=== PATIENT | female | born 1945 | race Caucasian/White ===

== ENCOUNTER → 2016-09-25 | Outpatient (CLI) | payer MEDICARE, BC ==
--- NOTE | 2016-09-25 11:58 | KCIC ---
Two-view chest. Indication:Reason For StudyReason: PERSISTENT COUGH 3 WEEKS, BRONCHITIS, BORDERLINE LOW O2 SATURATION, FORMER / Spl. Instructions: / History: FINDINGS: Heart size is normal. Pulmonary vasculature is within normal limits. No pleural effusion or consolidating infiltrate. No pneumothorax. The mediastinal contours are within normal limits. There are postsurgical changes in the mediastinum. IMPRESSION: Negative for evidence of heart failure or pneumonia. Electronically signed by: Laz Camacho (Sep 25, 2016 11:57:06)
== END | disposition home or self-care (01) ==
LOC: KCIC 11:39
PROVIDERS: ATTEND Nurse Practitioner Family
DX: J40 Bronchitis, not specified as acute or chronic (principal); R79.81 Abnormal blood-gas level
CPT/HCPCS: 71020

== ENCOUNTER → 2016-11-29 | Outpatient (CLI) | payer MEDICARE, BC ==
--- NOTE | 2016-11-30 09:23 | KCIC ---
Bilateral digital screening mammograms with CAD: HISTORY Routine screening. COMPARISON Comparison is made to previous studies dated back to 11/26/2013. FINDINGS Breast density category A. The skin and nipples show no abnormalities. No abnormal lymph nodes are seen in the axilla. The breast parenchyma is predominately fatty. There are small intramammary lymph nodes again seen. There continues to be a small parenchymal density anterior superiorly at the 10 o'clock a position of the right breast which is unchanged. There are no new dominant masses, suspicious calcifications or architectural distortions. A few benign appearing calcifications are again seen. IMPRESSION No evidence of malignancy. Recommend routine annual mammographic screening. This study was interpreted with the benefit of Computerized Aided Detection (CAD). Mammography is not 100% sensitive in detecting breast cancer. Therefore, a self breast exam and a clinical breast exam are very important. A negative mammogram does not negate a clinically suspicious finding and should not result in a delay in biopsying a clinically suspicious abnormality. BI-RADS category 2: Benign. This patient's information has been entered into a reminder system for the patient to be notified with the results of this examination and a target date for her next mammograms. Electronically signed by: Jamia Graham MD (Nov 30, 2016 09:21:58)
== END | disposition home or self-care (01) ==
LOC: KCIC MAMMO 11:21
PROVIDERS: ATTEND Family Medicine
DX: Z12.31 Encounter for screening mammogram for malignant neoplasm of breast (principal)
CPT/HCPCS: G0202; 77067

== ENCOUNTER → 2017-04-30 | Outpatient (CLI) | payer MEDICARE, BC ==
--- NOTE | 2017-04-30 12:28 | KCIC ---
CHEST PA LATERAL History: Bronchitis. Shortness of breath for one month.. Comparison: September 25, 2016. Findings: Cardiomediastinal silhouette is unchanged and not grossly enlarged. There is some ill-defined opacity in the right lower lobe, posteriorly, not identified on the prior study. This is fairly well-defined on the lateral projection. No pneumothorax identified. No evidence of pleural effusion. Postsurgical changes are noted. Impression: Development of an ill-defined opacity in the right lower lobe. This may represent pneumonia. Pulmonary mass is also possible. Recommend short-term follow-up radiographs after treatment to document resolution. Depending on risk factors, CT chest could also be considered. Electronically signed by: Rickey Lombardi MD (04/30/2017 12:24 PM) [facility]
== END | disposition home or self-care (01) ==
LOC: KCIC 09:59
PROVIDERS: ATTEND Internal Medicine Pulmonary Disease
DX: J40 Bronchitis, not specified as acute or chronic (principal); R06.02 Shortness of breath; R91.8 Other nonspecific abnormal finding of lung field
CPT/HCPCS: 71020

== ENCOUNTER → 2017-06-01 | Outpatient (CLI) | payer MEDICARE, BC ==
[~2017-06-01] MED LIST: ASPI325T8 PO; CALC1TAB PO; EZET10TA18 PO; FURO40TA4 PO; GLIM4TAB2 PO; IBAN150T PO; METF500T4 PO; METO25TA4 PO; POTA20TA82 PO; SIMV40TA3 PO
--- NOTE | 2017-06-01 16:08 | KCIC ---
PQRS Compliance Statement: One or more of the following individualized dose reduction techniques were utilized for this examination: 1. Automated exposure control 2. Adjustment of the mA and/or kV according to patient size 3. Use of iterative reconstruction technique CT CHEST WO CONTRAST Clinical Indication: Cough, bronchitis. Opacity right lower lobe on previous chest radiograph. Past smoker of 45 years. Comparison: Two-view chest April 30, 2017. Technique: Helical CT imaging of the chest is performed without IV contrast. Findings: Thyroid is symmetric. No axillary adenopathy. There are median sternotomy wires. Aortic valve replacement. There is dense mitral annular calcification. Thoracic aorta is normal in caliber. Pulmonary trunk is dilated. Mildly enlarged mediastinal lymph nodes. There may be enlarged right hilar lymph nodes, limited evaluation without IV contrast. Coronary artery disease. Cardiac size normal, no pericardial effusion. Nodularity of the the right adrenal gland. May be an adenoma. Small right pleural effusion. The central airways are patent. Respiratory motion artifact mildly degrades image quality. Minimal atelectasis or scarring in the inferior lingula. There is a 5 mm nodular opacity in the superior segment of the left lower lobe with surrounding tiny satellite nodules, image 24. There is narrowing of the right upper lobe bronchus, image 24. There is probably a right hilar mass as seen on image 33. There is narrowing of right middle lobe bronchi and peribronchial thickening. There is narrowing and opacification of right lower lobe bronchi. There is consolidation of a large portion of the basilar right lower lobe. There are reticular nodular opacities in the superior segment of the right lower lobe and groundglass opacities in the aerated basilar right lower lobe. There are several subcentimeter pulmonary nodules in the right upper lobe, metastatic disease not excluded. No acute bone abnormality. IMPRESSION: Findings are suspicious for a right hilar lung mass. There is narrowing of central right lung bronchi. There is moderate right lower lobe bronchopneumonia, likely postobstructive. There is small right pleural effusion and mild mediastinal adenopathy. Lung malignancy cannot be excluded. CT chest with contrast may help clarify findings. Electronically signed by: Neel Jimenez MD (06/01/2017 4:04 PM) [id number]
== END ==
LOC: KCIC CT 15:11
PROVIDERS: ATTEND Internal Medicine Pulmonary Disease
DX: J40 Bronchitis, not specified as acute or chronic (principal)
CPT/HCPCS: 71250

== ENCOUNTER → 2017-06-07 | Day surgery (SDC) | payer MEDICARE, BC ==
[~2017-06-07] MED LIST changes: +ALBUTEROL SULFATE 2.5 MG/3 ML NEBU. NEB ONE; +IPRATRPIUM/ALBUTEROL 0.5/2.5MG 3 ML NEBU. NEB ONE; +IV RINGERS,LACTATED 1000ML 1,000 ML IV SCH; +PROPOFOL 20 ML IV ONE
[2017-06-07 13:45] LABS: BASO # 0.1 x10^3/uL (0.0-0.2); BASO % 1 % (0-3); EOS % 3 % (0-3); HEMATOCRIT 43.5 % (36.0-47.0); HEMOGLOBIN 14.5 g/dL (12.0-15.5); LYMPH # 2.1 x10^3/uL (1.0-4.8); LYMPH % 23 % (24-48); MEAN CORPUSCULAR HEMOGLOBIN 31 pg (25-35); MEAN CORPUSCULAR HGB CONC 33 g/dL (31-37); MEAN CORPUSCULAR VOLUME 94 fL (79-100); MONO % 8 % (0-9); NEUT % 65 % (31-73); PLATELET COUNT 251 x10^3/uL (140-400); RED BLOOD COUNT 4.61 x10^6/uL (3.50-5.40); RED CELL DISTRIBUTION WIDTH 14.7 % (11.5-14.5); WHITE BLOOD COUNT 9.1 x10^3/uL (4.0-11.0)
[2017-06-07 13:56] LABS: PROTHROMBIN TIME PATIENT 12.6 SEC (11.7-14.0)
--- NOTE | 2017-06-07 15:13 | OP ---
DATE OF SURGERY: ATTENDING PHYSICIAN: Dr. Hart REASON FOR BRONCHOSCOPY: Abnormal CT chest, right hilar mass, possible postobstructive pneumonia. Informed consent was obtained from the patient. All risks and benefits were explained. They agreed to proceed with the procedure. Propofol was used by Anesthesia for sedation. Bronch was introduced in the right nostril. The upper airway was passed. Vocal cords move equally with respiration. There was a cyst in the right vocal cord. The trachea was entered. No tracheal lesions seen. Qiana was sharp. Right lung was examined. All subsegments of right upper lobe and right lower lobe were examined. There was some extrinsic compression of the right middle lobe opening. I was unable to pass the scope into the right middle lobe due to the extrinsic compression. There were no definite endobronchial lesions seen. I performed 2 cytology brushes from the mucosa of the opening of the right middle lobe and also bronchoalveolar lavage was performed from this area as well. Left lung was examined, no endobronchial lesions seen in all the subsegments of left upper lobe, lingula and left lower lobe. Mucosa appeared normal. No significant secretions seen. IMPRESSION: 1. Extrinsic compression of the opening of the right middle lobe. No definite endobronchial lesions seen. Cytology brush was performed from the right middle lobe opening and also bronchoalveolar lavage performed from the right middle lobe and sent for appropriate studies. 2. No endobronchial lesions seen in the right lower lobe or right upper lobe. 3. No pathology seen on the left lung. 4. The patient is to follow with Dr. Hart to discuss results of this test. 5. Small cyst at right vocal cord. PERLA PLASCENCIA MD DR: EL/marifer JOB#: [id number] / [id number] GARY
[2017-06-07 15:20] VITALS: BP 155/89
--- NOTE | 2017-06-12 16:56 | PATHOLOGY ---
CYTOPATHOLOGY REPORT CLINICAL HISTORY: Lung nodule. SPECIMEN(S) RECEIVED: A.Bronchoalveolar lavage, RML B.[place] rinse, RML FINAL DIAGNOSIS: A. Right middle lobe bronchoalveolar lavage, ThinPrep: - Few clusters of atypical cells identified cannot rule out malignancy. - B. Right middle lobe brushings and brush rinse: - Atypical cells identified. - Few focally atypical/reactive bronchial epithelial cells identified. COMMENT: This case is also examined by Dr. Pedro Lebron, cytopathologist, who concurs with the diagnosis. (JPM:mgr; 06/12/2017) PATHOLOGIST: Michael Jacinto M.D. REPORT ELECTRONICALLY SIGNED BY: Michael Jacinto M.D. DATE/TIME: 06/12/2017 16:56 GROSS PATHOLOGY: A. Bronchoalveolar lavage, RML: The specimen is submitted unfixed, labeled "Kendy Wallace". Received by the Cytology Department is 5 mL of clear fluid. One ThinPrep slide was prepared. B. [place] rinse, RML: The specimen is labeled "Kendy Wallace" and consists of a brush tip in fixative, and two fixed slides. One ThinPrep slide was prepared. (clt 06.08.2017) COMMERCIAL FINANCE MANAGER(S): TO [place]([facility]) INITIAL CPT CODE(S): A; 61025 B; 55079 Professional services [place] [place] [address] Technical services performed by [facility] at [address] [place] [address], [address], [place] [address]. PATIENT: KENDY WALLACE /AGE: 8 1945 (Age: 72) SEX: F PATIENT #: [id number] ALT CASE #: SPECIMEN COLLECTION DATE: 06/08/2017 SPECIMEN RECEIVED DATE: 06/08/[address] [facility], [address] [place] [address] PHONE: [phone] DIRECTOR: Franklin Ken M.D. * * * END OF REPORT * * *
== END | disposition home or self-care (01) ==
LOC: SURG 12:54
PROVIDERS: ATTEND Internal Medicine Critical Care Medicine
DX: J98.4 Other disorders of lung (principal); Z79.01 Long term (current) use of anticoagulants
CPT/HCPCS: 31622; 36415; 85025; 85610; 87070; 87205; 88112; 94640; J2704; J7613; J7620; 31624

== ENCOUNTER → 2017-06-25 | Outpatient (CLI) | payer MEDICARE, BC ==
[2017-06-07 15:20] VITALS: BP 155/89
[~2017-06-25] MED LIST changes: -ALBUTEROL SULFATE 2.5 MG/3 ML NEBU. NEB ONE; +HYDR-2758 PO; -IPRATRPIUM/ALBUTEROL 0.5/2.5MG 3 ML NEBU. NEB ONE; -IV RINGERS,LACTATED 1000ML 1,000 ML IV SCH; +LISI10TA2 PO; +MULT-697 PO; +OMEG1CAP28 PO; +PROM118S2 PO; -PROPOFOL 20 ML IV ONE
[2017-06-25 13:13] LABS: BASO # 0.1 x10^3/uL (0.0-0.2); BASO % 1 % (0-3); EOS % 2 % (0-3); HEMATOCRIT 38.4 % (36.0-47.0); HEMOGLOBIN 12.6 g/dL (12.0-15.5); LYMPH # 1.4 x10^3/uL (1.0-4.8); LYMPH % 11 % (24-48); MEAN CORPUSCULAR HEMOGLOBIN 31 pg (25-35); MEAN CORPUSCULAR HGB CONC 33 g/dL (31-37); MEAN CORPUSCULAR VOLUME 94 fL (79-100); MONO % 7 % (0-9); NEUT % 79 % (31-73); PLATELET COUNT 304 x10^3/uL (140-400); RED CELL DISTRIBUTION WIDTH 14.3 % (11.5-14.5); WHITE BLOOD COUNT 12.6 x10^3/uL (4.0-11.0)
[2017-06-25 13:24] LABS: PROTHROMBIN TIME PATIENT 12.6 SEC (11.7-14.0)
[2017-06-25 13:25] LABS: CREATININE 0.8 mg/dL (0.6-1.0); GFR 70.5
--- NOTE | 2017-06-25 13:37 | EKG ---
[facility] [address] [place] [address] Test Date: 2017-06-25 Test Time: 13:35:30 Pat Name: KENDY WALLACE Department: Room: Gender: F Engraver: EDWIN : 1945 Requested By: KVNG RICHARDSON Order Number: [id number] Reading MD: John Oh Measurements Intervals [place] Rate: 80 P: 50 MA: 128 QRS: 52 QRSD: 90 T: 61 QT: 356 QTc: 414 Interpretive Statements SINUS RHYTHM LEFT ATRIAL ABNORMALITY NONSPECIFIC ST-T WAVE CHANGES. RI6.01 No previous ECG available for comparison Electronically Signed On 06-25-2017 16:51:57 SENIOR POWER SCHEDULER by John Oh
== END | disposition home or self-care (01) ==
LOC: SURGPAT 12:23
PROVIDERS: ATTEND Thoracic Surgery (Cardiothoracic Vascular Surgery)
DX: Z01.818 Encounter for other preprocedural examination (principal)
CPT/HCPCS: 36415; 80048; 85025; 85610; 86850; 86900; 86901; 93005

== ENCOUNTER 2017-06-26 12:20 | Inpatient (IN) | payer MEDICARE, BC ==
[~2017-06-26] VITALS: Ht 162.6 cm; Wt 74.9 kg
[2017-06-26] MEDS ORDERED: VANCOMYCIN 1GM IVPB FOR OMNI 250 ML ONE (12:54)
[2017-06-26] MEDS: IV RINGERS,LACTATED 1000ML 1,000 ML IV SCH ×2 (12:55→20:53)
[2017-06-26] MEDS ORDERED: LIDOCAINE 1% PF 2 ML VIAL. ID PRN (13:00)
[2017-06-26] MEDS ORDERED: MIDAZOLAM HCL/PF 2 MG/2 ML VIAL. IV PRN (13:00)
[2017-06-26] MEDS ORDERED: VANCOMYCIN 1GM IVPB FOR OMNI. ONE (13:00)
[2017-06-26] MEDS ORDERED: fentaNYL PF VIAL 100 MCG/2 ML VIAL IV PRN ×2 (13:00)
[2017-06-26] MEDS ORDERED: BUPIVACAINE 0.5% 50 ML VIAL. ONE (13:08)
[2017-06-26] MEDS ORDERED: LIDOCAINE 1% 20 ML VIAL. ONE (13:08)
[2017-06-26] MEDS ORDERED: LIDOCAINE 2% PF Vial for OR 5 ML VIAL. ONE (13:48)
[2017-06-26] MEDS ORDERED: PROPOFOL 20 ML IV ONE (13:48)
[2017-06-26] MEDS ORDERED: ROCURONIUM 50 MG/5 ML VIAL. ONE (13:49)
[2017-06-26] MEDS ORDERED: fentaNYL PF VIAL 100 MCG/2 ML VIAL ONE ×2 (13:50→15:03)
[2017-06-26] MEDS ORDERED: BUPIVACAINE 0.5% 50 ML VIAL. INJ ONE (15:00)
[2017-06-26] MEDS ORDERED: LIDOCAINE 1% 20 ML VIAL. INJ ONE (15:00)
[2017-06-26] MEDS ORDERED: NEOSTIGMINE 10 MG/10 ML VIAL. ONE (15:32)
[2017-06-26] MEDS ORDERED: GLYCOPYRROLATE 1 MG/5 ML VIAL. ONE (15:32)
[2017-06-26] MEDS ORDERED: IPRATRPIUM/ALBUTEROL 0.5/2.5MG 3 ML NEBU. NEB ONE ×3 (16:15→16:45)
[2017-06-26] MEDS ORDERED: IPRATRPIUM/ALBUTEROL 0.5/2.5MG 3 ML NEBU. ONE (16:17)
[2017-06-26] MEDS ORDERED: hydrALAZINE 20 MG/ML VIAL. ONE (16:30)
[2017-06-26] MEDS: hydrALAZINE 20 MG/ML VIAL. IVP PRN ×2 (16:37→17:10)
--- NOTE | 2017-06-26 16:53 | RAD ---
EXAM: Chest one view. HISTORY: Postoperative, dyspnea. COMPARISON: 04/30/2017. FINDINGS: A frontal view of the chest is obtained. There are changes of median sternotomy and aortic valve replacement. There are calcifications of the aortic arch and mitral valve annulus. A moderate right pleural effusion has developed in the interval. The right base is now opacified. There is no pneumothorax. The heart is mildly enlarged. There is a chronic fracture deformity of the left proximal humerus. IMPRESSION: 1. Moderate right pleural effusion obscuring the previously noted right basilar process. 2. Mild cardiomegaly.
--- NOTE | 2017-06-26 17:15 | PDOC ---
BRIEF OPERATIVE NOTE Date: Jun 26, 2017 Pre-Op Diagnosis Right lung mass Mediastinal lymphadenopathy Oxygen dependence Post-Op Diagnosis Right lung mass Mediastinal lymphadenopathy Oxygen dependence Procedure Performed Flexible bronchoscopy with biopsies Mediastinoscopy Surgeon Kvng Richardson MD Upholstery Covers Inspector DIDI Miller Anesthesiologist Olivier Mcgarry MD Anesthesia Type: General Blood Loss 10 mls IV Fluid N/A Urine Output N/A Specimens Obtained Right lower lobe endobronchial biopsy Level VII subcarinal lymph node Level R4 mediastinal lymph node Findings External compression of the right lower lobe bronchus Abnormal appearing mucosa of the right lower lobe bronchus Enlarged subcarinal and paratracheal lymph nodes Complications None KVNG RICHARDSON MD Jun 26, 2017 17:15
--- NOTE | 2017-06-26 17:26 | PDOC4 ---
Operative Note Operative Note Date Jun 26, 2017 Preoperative diagnosis Right lung mass Mediastinal lymphadenopathy Oxygen dependence Postoperative diagnosis Right lung mass Mediastinal lymphadenopathy Oxygen dependence Procedure Performed Flexible bronchoscopy with biopsies Mediastinoscopy Surgeon Kvng Richardson MD Web Marketing Manager DIDI Miller Anesthesiologist Olivier Mcgarry MD Anesthesia General Blood loss 10 mls IV fluids N/A Urine output N/A Specimens obtained Right lower lobe endobronchial biopsy Level VII subcarinal lymph node Level R4 mediastinal lymph node Findings External compression of the right lower lobe bronchus Abnormal appearing mucosa of the right lower lobe bronchus Enlarged subcarinal and paratracheal lymph nodes Mucous plug of the right main stem bronchus Non-small cell lung cancer on frozen section Complications None Indication The patient is a 72-year-old female with a past several months has been rapidly declining from a respiratory standpoint. She is now oxygen dependent. She had a CT of the chest and PET scan which showed a collapsed right lower lobe, and mediastinal adenopathy which were SUV avid. An attempt at bronchoscopy failed to yield a diagnosis. A flexible bronchoscopy on the general anesthesia and the mediastinoscopy were indicated. The risks, benefits and limitations of procedure were explained to the patient will agree to proceed. Informed consent was obtained. Operation The patient was seen in the preoperative area where her ID was confirmed using 2 unique identifies. She was then transferred to the operating room and placed supine on the operating table. Anesthesia was induced by the anesthesiologist and the airway was secured with an ET tube. Vancomycin for antibiotic prophylaxis was given, owing to her penicillin allergy. A timeout was then performed. I initially performed a flexible bronchoscopy through the ET tube. The trachea appeared normal. There was a large thick mucous plug which was occluding the right mainstem bronchus. This was suctioned. Inspection of the right main bronchus, right upper lobe and middle lobe bronchus was essentially normal. There was mucinous secretions in the right lower lobe bronchus which were also suctioned. The mucosa of the superior segment of the right lower lobe appeared abnormal and several biopsies were taken. This was sent for frozen section. The left sided airway was inspected and was without any abnormalities. The right lung was suctioned and hemostasis was confirmed. We then proceeded with the mediastinoscopy. The anterior chest and neck were prepped in the usual sterile surgical fashion. I made a 2 cm incision 2 fingerbreadths above the sternal notch. Incision was deepened through the subcutaneous tissue, the platysma down to the strap muscles which were bluntly at the median raphe. The pretracheal fascia was incised and the pretracheal space was developed with blunt digital dissection. The mediastinoscope was inserted. There were several adhesions in the pretracheal space, owing to the patient's previous median sternotomy and aortic valve replacement. I very carefully dissected the pretracheal space and identified the SVC, innominate artery and pulmonary artery. I then dissected out the subcarinal space and identified a large subcarinal node. Several biopsies of this node were taken and sent for frozen section. In a similar fashion, I dissected out an enlarged right paratracheal node which was also sent for frozen. Hemostasis was achieved with cautery. The pretracheal space was packed with gauze and hemostasis was confirmed. The strap muscles were reapproximated with 2-0 Vicryl. Subcutaneous tissues were closed with 3-0 Vicryl. The epidermis was closed with 4-0 Monocryl. Dermabond was applied onto the incision. The frozen section results in the meantime came back which showed non-small cell lung cancer from the endobronchial biopsies. Surprisingly the lymph node biopsies did not demonstrate any tumor cells. At that point, since we achieved a diagnosis we did not repeat the mediastinoscopy to obtain further lymph node biopsies. Based on her PET CT, the patient has multistation N2 disease and is not considered a surgical candidate. Anesthesia was reversed, the patient was extubated and transferred to the PACU. The patient was initially hypoxic and required BiPAP to maintain oxygenation. Depending on her progress, she may require admission. KVNG RICHARDSON MD Jun 26, 2017 17:26
[2017-06-26 18:45] VITALS: BP 131/57
[2017-06-26] MEDS ORDERED: MAG HYDROX/ALUMINUM HYD/SIMETH 30 ML ORAL.SUSP PO PRN (18:45)
[2017-06-26] MEDS ORDERED: MAGNESIUM HYDROXIDE 2,400 MG/30 ML ORAL.SUSP. PO PRN (18:45)
[2017-06-26] MEDS ORDERED: NON FORMULARY ITEM (Ibandronate Sodium (Boniva) 150 MG) PO SCH (18:45)
[2017-06-26] MEDS ORDERED: IBUPROFEN 400 MG TABLET. PO PRN (18:45)
[2017-06-26] MEDS ORDERED: PROCHLORPERAZINE 10 MG/2 ML VIAL. IV PRN (18:45)
[2017-06-26] MEDS ORDERED: ACETAMINOPHEN 325 MG TABLET. PO PRN (18:45)
[2017-06-26] MEDS ORDERED: PROCHLORPERAZINE 25 MG SUPP.RECT. PR PRN (18:45)
[2017-06-26] MEDS ORDERED: KETOROLAC 15 MG/ML VIAL. IV PRN (18:45)
[2017-06-26] MEDS ORDERED: ONDANSETRON PF 4 MG/2 ML VIAL. IV PRN (18:45)
[2017-06-26] MEDS ORDERED: BISACODYL 10 MG SUPP.RECT. PR PRN (18:45)
[2017-06-26] MEDS ORDERED: CALCIUM CARBONATE 500 MG TAB.CHEW PO PRN (18:45)
[2017-06-26 19:00] VITALS: BP 131/57
[2017-06-26] MEDS: IPRATRPIUM/ALBUTEROL 0.5/2.5MG 3 ML NEBU. NEB SCH (19:57)
[2017-06-26 20:00] VITALS: BP 131/57
[2017-06-26] MEDS: METOPROLOL TART IMMED RELEASE 25 MG TABLET. PO SCH (20:30)
[2017-06-26] MEDS: SIMVASTATIN 40 MG TABLET. PO SCH (20:30)
[2017-06-26] MEDS: DOCUSATE SODIUM 100 MG CAPSULE. PO SCH (20:30)
[2017-06-26] MEDS: metFORMIN 500 MG TABLET PO SCH (20:30)
[2017-06-26] MEDS: PROMETH/CODEINE 6.25/10MG 5 ML SYRUP. PO SCH (20:31)
[2017-06-26] MEDS: ENOXAPARIN 40 MG/0.4 ML SYRINGE. SQ SCH (20:31)
[2017-06-26 21:00] VITALS: BP 116/53
[2017-06-26 22:00] VITALS: BP 103/57
[2017-06-26 23:00] VITALS: BP 96/50
[2017-06-27] VITALS (17 sets, daily range): BP systolic 83–112; BP diastolic 41–55
[2017-06-27] MEDS: HYDROcodone/APAP 5/325MG 1 TAB TABLET PO PRN ×2 (01:22→20:43)
[2017-06-27 05:26] LABS: BASO # 0.1 x10^3/uL (0.0-0.2); BASO % 1 % (0-3); EOS % 0 % (0-3); HEMOGLOBIN 11.4 g/dL (12.0-15.5); LYMPH # 0.6 x10^3/uL (1.0-4.8); LYMPH % 5 % (24-48); MEAN CORPUSCULAR HEMOGLOBIN 30 pg (25-35); MEAN CORPUSCULAR HGB CONC 32 g/dL (31-37); MEAN CORPUSCULAR VOLUME 94 fL (79-100); MONO % 7 % (0-9); NEUT % 88 % (31-73); PLATELET COUNT 252 x10^3/uL (140-400); RED BLOOD COUNT 3.74 x10^6/uL (3.50-5.40); RED CELL DISTRIBUTION WIDTH 14.3 % (11.5-14.5)
[2017-06-27 05:57] LABS: CALCIUM 9.7 mg/dL (8.5-10.1); CREATININE 0.8 mg/dL (0.6-1.0); GFR 70.5; POTASSIUM 4.9 mmol/L (3.5-5.1)
[2017-06-27] MEDS: IPRATRPIUM/ALBUTEROL 0.5/2.5MG 3 ML NEBU. NEB SCH ×4 (08:01→20:01)
--- NOTE | 2017-06-27 08:35 | PDOC ---
Progress Note Subjective Subjective Doing much better. On 6 lit NC, sats 94%. Talked to her about her diagnosis and potential treatments ROS ROS No nausea No vomiting Mild SOB No pain No rash Vital Sign Vital Signs Vital Signs Date Time Temp Pulse Resp B/P (MAP) Pulse Ox O2 Delivery O2 Flow Rate FiO2 06/27/17 08:01 96 Nasal Cannula 5.0 06/27/17 07:00 85 14 108/52 (70) 06/27/17 04:00 98.5 98.5 Physical Exam PHYSICAL EXAM GENERAL: NAD, Alert HEENT: PERRL, OC/OP NECK: Supple, no JVD, no LN LUNGS: rhonchi HEART: S1S2, no gallop, no murmur ABD: Soft, NT, no organomegaly, no rebound EXT: No edema, no cyanosis PATTERN DRUM MAKER: Alert, oriented x 3, no focal neurologic deficit SKIN: No rash IV: ok Labs Lab Laboratory Tests Test 06/26/17 12:59 06/27/17 04:00 Glucose (Fingerstick) 127 mg/dL (70-99) White Blood Count 12.0 x10^3/uL (4.0-11.0) Red Blood Count 3.74 x10^6/uL (3.50-5.40) Hemoglobin 11.4 g/dL (12.0-15.5) Hematocrit 35.0 % (36.0-47.0) Mean Corpuscular Volume 94 fL (79-100) Mean Corpuscular Hemoglobin 30 pg (25-35) Mean Corpuscular Hemoglobin Concent 32 g/dL (31-37) Red Cell Distribution Width 14.3 % (11.5-14.5) Platelet Count 252 x10^3/uL (140-400) Neutrophils (%) (Auto) 88 % (31-73) Lymphocytes (%) (Auto) 5 % (24-48) Monocytes (%) (Auto) 7 % (0-9) Eosinophils (%) (Auto) 0 % (0-3) Basophils (%) (Auto) 1 % (0-3) Neutrophils # (Auto) 10.5 x10^3uL (1.8-7.7) Lymphocytes # (Auto) 0.6 x10^3/uL (1.0-4.8) Monocytes # (Auto) 0.8 x10^3/uL (0.0-1.1) Eosinophils # (Auto) 0.0 x10^3/uL (0.0-0.7) Basophils # (Auto) 0.1 x10^3/uL (0.0-0.2) Sodium Level 136 mmol/L (136-145) Potassium Level 4.9 mmol/L (3.5-5.1) Chloride Level 100 mmol/L (98-107) Carbon Dioxide Level 31 mmol/L (21-32) Anion Gap 5 (6-14) Blood Urea Nitrogen 13 mg/dL (7-20) Creatinine 0.8 mg/dL (0.6-1.0) Estimated GFR (Cockcroft-Gault) 70.5 Glucose Level 212 mg/dL (70-99) Calcium Level 9.7 mg/dL (8.5-10.1) Objective Assessment POD#1, s/p bronchoscopy and mediastinoscopy. Frozen section confirmed NSCLC Doing much better. On 6 lit NC, sats 94%. Talked to her about her diagnosis and potential treatments She appears to be a T2(obstructive pneumonitis of lobe) N2 (mediastinal adenopathy PET avid) M0, stage IIIA non small cell lung Ca. Although she may have single station N2 disease, I don't think she has the pulmonary reserve to tolerate a lobectomy. She is already O2 dependent with loss of her RLL from obstructive atelectasis. She struggled last night with a short general anesthesia for her mediastinoscopy/bronchoscopy Plan Plan of Care Transfer out of ICU Breathing treatments (Albuterol/Atrovent) D/c home when cleared by Dr Figueroa, likely when she is back to baseline home O2 (2-4 lit). OK to d/c home from surgical standpoint Oncology consult-Dr Hunter will see her today KVNG RICHARDSON MD Jun 27, 2017 08:35
[2017-06-27] MEDS: LISINOPRIL 10 MG TABLET PO SCH (09:00)
[2017-06-27 09:25] LABS: PLT ESTIMATE ADEQUATE (ADEQUATE)
[2017-06-27] MEDS: CALCIUM CARB/VIT D3 500/200 TABLET. PO SCH (09:40)
[2017-06-27] MEDS: EZETIMIBE 10 MG TABLET. PO SCH (09:40)
[2017-06-27] MEDS: DOCUSATE SODIUM 100 MG CAPSULE. PO SCH ×2 (09:40→20:39)
[2017-06-27] MEDS: FUROSEMIDE 40 MG TABLET. PO SCH (09:41)
[2017-06-27] MEDS: metFORMIN 500 MG TABLET PO SCH ×2 (09:41→17:00)
[2017-06-27] MEDS: POTASSIUM CHLORIDE 20 MEQ TABLET.ER. PO SCH (09:41)
[2017-06-27] MEDS: ASPIRIN 325 MG TABLET PO SCH (09:41)
[2017-06-27] MEDS: METOPROLOL TART IMMED RELEASE 25 MG TABLET. PO SCH ×2 (09:42→20:43)
[2017-06-27] MEDS: GLIMEPIRIDE 2 MG TABLET. PO SCH (09:43)
--- NOTE | 2017-06-27 12:17 | PDOC ---
Provider Note Provider Note Med Onc consult 1. Stage IIIA NSCLC f/u with me next week for chemo/XRT planning I will order MRI brain for staging See dictation [id number] RENATO HUMMEL MD Jun 27, 2017 12:17
--- NOTE | 2017-06-27 14:49 | HP ---
ADMIT DATE: 06/27/2017 CHIEF COMPLAINT: Cough, lung mass. HISTORY OF PRESENT ILLNESS: The patient is a pleasant 72-year-old female who used to smoke. She now has a lung mass. Basically, they have been evaluating for the past month or so. She had a PET scan, which was positive. She went for a biopsy yesterday. During the biopsy postoperatively, she developed respiratory failure, had to be intubated and admitted to the ICU. She has now been transferred to the telemetry where she is slowly improving. We are consulting Dr. Hunter and Dr. Hart. PAST MEDICAL HISTORY: A new diagnosis of non-small cell lung cancer stage 3a, allergic rhinitis, diabetes, chronic pain, hypertension, hyperlipidemia. ALLERGIES: PENICILLIN, CIPROFLOXACIN AND OXYCODONE. FAMILY HISTORY: Diabetes. SOCIAL HISTORY: She does not drink. She quit smoking, no drugs. She is . MEDICATIONS: Reviewed, please see the MRAD. REVIEW OF SYSTEMS: GENERAL: No history of weight change, weakness or fevers. SKIN: No bruising, hair changes or rashes. EYES: No blurred, double or loss of vision. NOSE AND THROAT: No history of nosebleeds, hoarseness or sore throat. HEART: No history of palpitations, chest pain or shortness of breath on exertion. LUNGS: She complains of a severe cough and shortness of breath. GASTROINTESTINAL: Denies changes in appetite, nausea, vomiting, diarrhea or constipation. GENITOURINARY: No history of frequency, urgency, hesitancy or nocturia. NEUROLOGIC: Denies history of numbness, tingling, tremor or weakness. PSYCHIATRIC: No history of panic, anxiety or depression. ENDOCRINE: No history of heat or cold intolerance, polyuria or polydipsia. EXTREMITIES: Denies muscle weakness, joint pain, pain on walking or stiffness. PHYSICAL EXAMINATION: VITAL SIGNS: Temperature afebrile, pulse 90, respirations 18, blood pressure 146/70. GENERAL: She is alert, cooperative. HEART: Normal S1, S2. LUNGS: Coarse with a harsh cough. ABDOMEN: Soft. EXTREMITIES: No edema. SKIN: She has some bruising on her neck where they did the biopsy. ENDOCRINE: No thyromegaly. LYMPHATICS: No cervical nodes. HEMATOPOIETIC: No bruising. LABORATORY DATA: White count 12, hemoglobin 11, platelets 252. Electrolytes are normal. ASSESSMENT AND PLAN: Non-small cell lung cancer. I did call Dr. Ha in Pathology. He did frozen slides. He states that they almost certainly are non-small cell lung cancer. I called Dr. Hunter. He is recommending carboplatin and Taxol chemotherapy. We will also probably recommend radiation therapy. She is not a surgical candidate. Prognosis is quite poor long-term. We will continue home medicines p.r.n. pain meds, DuoNeb, oxygen. FAM VAUGHN DO DR: ANISH/marifer JOB#: [id number] / [id number]
[2017-06-27] MEDS ORDERED: GADOBUTROL 7.5 MMOL/7.5 ML VIAL IV ONE (16:15)
--- NOTE | 2017-06-27 16:53 | CONS ---
DATE OF CONSULTATION: 06/27/2017 REQUESTING PHYSICIAN: Dr. Diogo Menendez. REASON FOR CONSULTATION: Stage 3A non-small cell lung cancer diagnosed on 06/26/2017. HISTORY OF PRESENT ILLNESS: The patient is a 72-year-old female who has had increasing dyspnea and cough that started in 03/2017 and she was seen by a parts lister in 04/2017. She underwent a chest x-ray on 04/30/2017, which revealed development of an ill-defined opacity in the right lower lobe of the lung when compared to the prior chest x-ray from 09/25/2016. Pneumonia versus pulmonary mass was the possibilities. CT scan of the chest was recommended, which was done on 06/01/2017, which revealed right hilar lung mass and right lower lobe bronchopneumonia, likely postobstructive. Mild mediastinal lymphadenopathy was also noted. She underwent a PET scan on 06/14/2017, which revealed right lower lobe lung mass measuring 8.2 cm with SUV of 12.2 along with right hilar lymphadenopathy and subcarinal and precarinal and azygous and right paratracheal lymphadenopathy. She underwent bronchoscopy by Dr. Dominic Turcios on 06/07/2017, which revealed extrinsic compression of the opening of the right middle lobe. No definite endobronchial lesions were seen. Cytology brushing was performed and was negative for malignancy. Hence, Thoracic Surgery was consulted and the patient underwent flexible bronchoscopy with biopsy and mediastinoscopy by Dr. Diogo Menendez on 06/26/2017. Biopsy revealed non-small cell carcinoma in the frozen section. I discussed with Dr. Menendez and Dr. Hart, and I also discussed with the pathologist, Dr. Michael Jacinto. The patient was subsequently admitted to the ICU. Her oxygenation is now much better. She is not a candidate for surgery and hence I was consulted for consideration of chemotherapy and radiation therapy. The patient denies any hemoptysis. PAST MEDICAL HISTORY: History of deep venous thrombosis in the right leg, chronic obstructive pulmonary disease, she is on oxygen 2 liters by nasal cannula; history of right breast surgery that was negative for malignancy, history of osteoarthritis, osteoporosis, diabetes mellitus. PAST SURGICAL HISTORY: Includes IVC filter placement, aortic valve replacement in 2010, history of breast biopsy that was negative. SOCIAL HISTORY: She has a [id number] smoking history. FAMILY HISTORY: No known history of lung cancer. REVIEW OF SYSTEMS: A 12-point review of systems was performed. Pertinent positives are mentioned in the history of present illness. Rest of the system review is negative. PHYSICAL EXAMINATION: GENERAL APPEARANCE: The patient is a 72-year-old female who is in no acute cardiorespiratory distress. VITAL SIGNS: Blood pressure 89/45, temperature 98.4. HEAD: Atraumatic, normocephalic. EYES: No icterus. NECK: Supple. CHEST: Bilaterally symmetrical. No crepitations or rhonchi heard. HEART: S1, S2 normal. ABDOMEN: Soft, nontender. CENTRAL NERVOUS SYSTEM: No focal deficits. LYMPHATICS: No lymphadenopathy. SKIN: No rashes. PSYCHOLOGIC: Mood and affect are appropriate. MUSCULOSKELETAL: No joint effusions. LABORATORY DATA: WBC 12, hemoglobin 11.4, platelet count 252. Creatinine 0.8. IMPRESSION AND PLAN: 1. Non-small cell lung cancer of the right lower lobe of the lung with evidence of hilar and mediastinal lymphadenopathy, stage 3A, diagnosed on 06/26/2017. She is not a surgical candidate. I appreciate Thoracic Surgery evaluation. I discussed with Dr. Menendez and with Dr. Mary Hart. I discussed in detail with the patient regarding the diagnosis, prognosis, and treatment options for stage 3 lung cancer. I recommended concurrent chemotherapy and radiation therapy utilizing carboplatin and Taxol. I will also consult Radiation Oncology as outpatient. I have advised her to return for followup with me next week and I will coordinate with Radiation Oncology to initiate treatment. All her questions were answered. 2. Dyspnea. She is on oxygen. 3. History of deep venous thrombosis. RENATO HUMMEL MD DR: EVANGELIST/marifer JOB#: [id number] / [id number] JAI Dorsey MD [facility] CENTERFrederick
--- NOTE | 2017-06-27 16:56 | RAD ---
MRI Brain with and without contrast History: New diagnosis lung cancer, evaluation for metastases Technique: Multiplanar, multi sequential pre and postcontrast MR imaging was performed of the brain. Contrast: 7.5 cc Gadavist Comparison: None Findings: While contrast was reportedly injected, there is no appreciable visualization of contrast and postcontrast images. There are multiple scattered small foci of T2 and FLAIR hyperintense abnormality of the supratentorial parenchyma bilaterally, not associated with significant mass effect. There is mild supratentorial involutional change, ventricular size considered within normal limits. There is preservation of the major arterial intracranial flow voids at the skull base other than very hypoplastic right vertebral artery flow-void. There is no evidence of recent infarct or cytotoxic edema. There is very minimal patchy fluid of the left mastoid air cells. Impression: 1. Postcontrast images are not diagnostic as no contrast visualized. Repeat postcontrast imaging is recommended. 2. Scattered T2 and FLAIR hyperintense abnormality of the supratentorial white matter is nonspecific, may be due to chronic microvascular ischemic disease. There is mild supratentorial involutional change Electronically signed by: Claudio Giordano MD (06/27/2017 4:52 PM) [id number]
--- NOTE | 2017-06-27 17:07 | PDOC ---
PULMONARY PROGRESS NOTES Vitals Vital Signs Date Time Temp Pulse Resp B/P (MAP) Pulse Ox O2 Delivery O2 Flow Rate FiO2 06/27/17 15:12 94 Nasal Cannula 6.0 06/27/17 14:50 98.3 80 20 92/43 (59) 98.3 Labs Laboratory Tests Test 06/26/17 12:59 06/26/17 18:42 06/27/17 04:00 Glucose (Fingerstick) 127 mg/dL (70-99) Nasal Screen MRSA (PCR) Negative (Negative) White Blood Count 12.0 x10^3/uL (4.0-11.0) Red Blood Count 3.74 x10^6/uL (3.50-5.40) Hemoglobin 11.4 g/dL (12.0-15.5) Hematocrit 35.0 % (36.0-47.0) Mean Corpuscular Volume 94 fL (79-100) Mean Corpuscular Hemoglobin 30 pg (25-35) Mean Corpuscular Hemoglobin Concent 32 g/dL (31-37) Red Cell Distribution Width 14.3 % (11.5-14.5) Platelet Count 252 x10^3/uL (140-400) Neutrophils (%) (Auto) 88 % (31-73) Lymphocytes (%) (Auto) 5 % (24-48) Monocytes (%) (Auto) 7 % (0-9) Eosinophils (%) (Auto) 0 % (0-3) Basophils (%) (Auto) 1 % (0-3) Neutrophils # (Auto) 10.5 x10^3uL (1.8-7.7) Lymphocytes # (Auto) 0.6 x10^3/uL (1.0-4.8) Monocytes # (Auto) 0.8 x10^3/uL (0.0-1.1) Eosinophils # (Auto) 0.0 x10^3/uL (0.0-0.7) Basophils # (Auto) 0.1 x10^3/uL (0.0-0.2) Segmented Neutrophils % 96 % (35-66) Band Neutrophils % 1 % (0-9) Lymphocytes % 1 % (24-48) Monocytes % 2 % (0-10) Platelet Estimate Adequate (ADEQUATE) Sodium Level 136 mmol/L (136-145) Potassium Level 4.9 mmol/L (3.5-5.1) Chloride Level 100 mmol/L (98-107) Carbon Dioxide Level 31 mmol/L (21-32) Anion Gap 5 (6-14) Blood Urea Nitrogen 13 mg/dL (7-20) Creatinine 0.8 mg/dL (0.6-1.0) Estimated GFR (Cockcroft-Gault) 70.5 Glucose Level 212 mg/dL (70-99) Calcium Level 9.7 mg/dL (8.5-10.1) Laboratory Tests Test 06/26/17 18:42 06/27/17 04:00 Nasal Screen MRSA (PCR) Negative (Negative) White Blood Count 12.0 x10^3/uL (4.0-11.0) Red Blood Count 3.74 x10^6/uL (3.50-5.40) Hemoglobin 11.4 g/dL (12.0-15.5) Hematocrit 35.0 % (36.0-47.0) Mean Corpuscular Volume 94 fL (79-100) Mean Corpuscular Hemoglobin 30 pg (25-35) Mean Corpuscular Hemoglobin Concent 32 g/dL (31-37) Red Cell Distribution Width 14.3 % (11.5-14.5) Platelet Count 252 x10^3/uL (140-400) Neutrophils (%) (Auto) 88 % (31-73) Lymphocytes (%) (Auto) 5 % (24-48) Monocytes (%) (Auto) 7 % (0-9) Eosinophils (%) (Auto) 0 % (0-3) Basophils (%) (Auto) 1 % (0-3) Neutrophils # (Auto) 10.5 x10^3uL (1.8-7.7) Lymphocytes # (Auto) 0.6 x10^3/uL (1.0-4.8) Monocytes # (Auto) 0.8 x10^3/uL (0.0-1.1) Eosinophils # (Auto) 0.0 x10^3/uL (0.0-0.7) Basophils # (Auto) 0.1 x10^3/uL (0.0-0.2) Segmented Neutrophils % 96 % (35-66) Band Neutrophils % 1 % (0-9) Lymphocytes % 1 % (24-48) Monocytes % 2 % (0-10) Platelet Estimate Adequate (ADEQUATE) Sodium Level 136 mmol/L (136-145) Potassium Level 4.9 mmol/L (3.5-5.1) Chloride Level 100 mmol/L (98-107) Carbon Dioxide Level 31 mmol/L (21-32) Anion Gap 5 (6-14) Blood Urea Nitrogen 13 mg/dL (7-20) Creatinine 0.8 mg/dL (0.6-1.0) Estimated GFR (Cockcroft-Gault) 70.5 Glucose Level 212 mg/dL (70-99) Calcium Level 9.7 mg/dL (8.5-10.1) Medications Active Scripts Medications Dose Route/Sig Max Daily Dose Days Date Category Promethazine-Codeine Syrup (Promethazine Hcl/Codeine) 118 Ml Syrup 10 Ml PO QHS 06/25/17 Reported Hydrocodone-Apap 5-325 (Hydrocodone Bit/Acetaminophen) 1 Each Tablet 1 Tab PO PRN Q6HRS PRN 06/25/17 Reported Centrum Adults Tablet (Multivitamin/Iron/Folic Acid) 1 Each Tablet 1 Each PO 06/25/17 Reported Fish Oil 1,200 Mg Softgel ([place]-3 Fatty Acids/Fish Oil) 1 Each Capsule 1 Each PO 06/25/17 Reported Lisinopril 10 Mg Tablet 1 Tab PO DAILY 06/25/17 Reported Aspirin 325 Mg Tablet 325 Mg PO DAILY 06/07/17 Reported Caltrate 600 + D Tablet (Calcium Carbonate/Vitamin D3) 1 Each Tablet 1 Each PO DAILY 06/07/17 Reported Boniva (Ibandronate Sodium) 150 Mg Tablet 150 Mg PO MONTHLY 06/07/17 Reported Zetia (Ezetimibe) 10 Mg Tablet 10 Mg PO DAILY 06/07/17 Reported Glimepiride 4 Mg Tablet 4 Mg PO DAILY 06/07/17 Reported Potassium Chloride 20 Meq Tablet.er 20 Meq PO DAILY 06/07/17 Reported Furosemide 40 Mg Tablet 40 Mg PO DAILY 06/07/17 Reported Simvastatin 40 Mg Tablet 40 Mg PO HS 06/07/17 Reported Metoprolol Tartrate 25 Mg Tablet 25 Mg PO BID 06/07/17 Reported Metformin Hcl 500 Mg Tablet 500 Mg PO BIDWMEALS 06/07/17 Reported Impression . DICTATED SPOKE WITH DR SHAHEED Sidhu IN AM FOLLOW UP WITH ME IN AUG/SEP FOLLOW UP WITH DR HUMMEL CONTINUE 02 BRONCHODILATORS KLARISSA VICKERS MD Jun 27, 2017 17:07
[2017-06-27] MEDS: ENOXAPARIN 40 MG/0.4 ML SYRINGE. SQ SCH (20:36)
[2017-06-27] MEDS: PROMETH/CODEINE 6.25/10MG 5 ML SYRUP. PO SCH (20:38)
[2017-06-27] MEDS: SIMVASTATIN 40 MG TABLET. PO SCH (20:39)
--- NOTE | 2017-06-27 20:48 | CONS ---
DATE OF CONSULTATION: 06/27/2017 ATTENDING PHYSICIAN: Sindi Judd DO. REASON FOR CONSULTATION: The patient seen in pulmonary consultation at the request of Dr. Menendez for expected acute on chronic respiratory failure, status post mediastinoscopy. HISTORY OF PRESENT ILLNESS: The patient is well known to me from outpatient department. She is a 72-year-old that presented with persistent cough. She was worked up and found to have a lung mass. She underwent bronchoscopy, which was nondiagnostic. She had subsequently underwent a PET scan, which was positive. She was needing a definitive diagnosis, underwent a mediastinoscopy yesterday. The frozen section on the mediastinoscopy revealed non-small cell lung cancer. After surgery, the patient has significant respiratory distress. She is normally on 2 liters of oxygen at home at rest and 4 with exertion. She had massive amount of wheezing and bronchospasm along with mucus production. In fact, she underwent a flexible bronchoscopy revealing mucus plugs. She was initially placed on BiPAP. She is now off of BiPAP, feels better, has persistent cough, mostly nonproductive. She did state that she coughed up some mucus earlier today. PAST MEDICAL HISTORY: COPD, allergic rhinitis, diabetes, chronic pain, hypertension, hyperlipidemia. ALLERGIES: PENICILLIN, CIPROFLOXACIN AND OXYCODONE. FAMILY HISTORY: Diabetes. SOCIAL HISTORY: She is currently not smoking. REVIEW OF SYSTEMS: As indicated above. Otherwise, a 10-point system was reviewed and negative. CONSTITUTIONAL: No fever or chills. EYES: No changes in visual acuity. HEENT: No nasal congestion, mild sore throat. RESPIRATORY: As indicated above. CARDIOVASCULAR: No chest pain. No pressure. GASTROINTESTINAL: No nausea, vomiting, or diarrhea. GENITOURINARY: No dysuria or frequency. MUSCULOSKELETAL: No localized muscle aches or joint pain. SKIN: No new skin rashes. NEUROLOGIC: No headaches, diplopia or blurred vision. Chest x-ray was reviewed, moderate effusion with right opacity. LABORATORY DATA: Reviewed. White count was elevated. Hemoglobin and hematocrit were noted. Electrolytes were noted. IMPRESSION: 1. Acute on chronic respiratory failure. 2. Stage 3A non-small cell lung cancer. 3. Chronic obstructive pulmonary disease. 4. Chronic cough related to endobronchial extrinsic compression. 5. Acute bronchitis. 6. Status post mediastinoscopy and flexible bronchoscopy. PLAN: 1. The patient is doing better now. She is off the BiPAP. We will continue nasal cannula oxygen. 2. If continues to improve, we will discharge home in the a.m. on Robitussin with codeine along with her usual bronchodilators. 3. Follow up in the office. 4. Followup Dr. Hunter's recommendation. She will initiate chemotherapy in the near future. 5. MRI of the brain was performed today revealing no evidence of metastatic disease. I do appreciate the privilege in sharing in the patient's care. KLARISSA VICKERS MD DR: JARED/marifer JOB#: [id number] / [id number]
[2017-06-28 03:28] VITALS: BP 85/44
[2017-06-28 07:00] VITALS: BP 96/41
[2017-06-28] MEDS: IPRATRPIUM/ALBUTEROL 0.5/2.5MG 3 ML NEBU. NEB SCH (07:52)
[2017-06-28] MEDS: metFORMIN 500 MG TABLET PO SCH (08:00)
[2017-06-28] MEDS: FUROSEMIDE 40 MG TABLET. PO SCH (08:22)
[2017-06-28] MEDS: DOCUSATE SODIUM 100 MG CAPSULE. PO SCH (08:22)
[2017-06-28] MEDS: CALCIUM CARB/VIT D3 500/200 TABLET. PO SCH (08:22)
[2017-06-28] MEDS: ASPIRIN 325 MG TABLET PO SCH (08:22)
[2017-06-28] MEDS: GLIMEPIRIDE 2 MG TABLET. PO SCH (08:22)
[2017-06-28] MEDS: EZETIMIBE 10 MG TABLET. PO SCH (08:22)
[2017-06-28] MEDS: POTASSIUM CHLORIDE 20 MEQ TABLET.ER. PO SCH (08:22)
[2017-06-28] MEDS: METOPROLOL TART IMMED RELEASE 25 MG TABLET. PO SCH (08:24)
[2017-06-28 08:27] VITALS: BP 96/41
[2017-06-28] MEDS: LISINOPRIL 10 MG TABLET PO SCH (08:27)
--- NOTE | 2017-06-28 11:31 | PDOC ---
PROGRESS NOTES Chief Complaint Chief Complaint Cough Lung Mass History of Present Illness History of Present Illness Pt was sitting up in chair, grossly alert and oriented, able to carry on a normal conversation. Vitals Vitals Vital Signs Date Time Temp Pulse Resp B/P (MAP) Pulse Ox O2 Delivery O2 Flow Rate FiO2 06/28/17 08:27 87 96/41 06/28/17 08:00 Nasal Cannula 5.0 06/28/17 07:53 95 06/28/17 07:00 97.9 20 97.9 Physical Exam General: Alert, Cooperative Heart: Regular rate, Normal S1, Normal S2, No murmurs Lungs: Clear Assessment and Plan Assessmemt and Plan ASSESSMENT: Cough Lung Mass PLAN: Discharge today Follow up with PCP in 1 wk Problems: Comment Review of Relevant I have reviewed the following items silvino (where applicable) has been applied. Labs Laboratory Tests Test 06/26/17 12:59 06/26/17 18:42 06/27/17 04:00 Glucose (Fingerstick) 127 mg/dL (70-99) Nasal Screen MRSA (PCR) Negative (Negative) White Blood Count 12.0 x10^3/uL (4.0-11.0) Red Blood Count 3.74 x10^6/uL (3.50-5.40) Hemoglobin 11.4 g/dL (12.0-15.5) Hematocrit 35.0 % (36.0-47.0) Mean Corpuscular Volume 94 fL (79-100) Mean Corpuscular Hemoglobin 30 pg (25-35) Mean Corpuscular Hemoglobin Concent 32 g/dL (31-37) Red Cell Distribution Width 14.3 % (11.5-14.5) Platelet Count 252 x10^3/uL (140-400) Neutrophils (%) (Auto) 88 % (31-73) Lymphocytes (%) (Auto) 5 % (24-48) Monocytes (%) (Auto) 7 % (0-9) Eosinophils (%) (Auto) 0 % (0-3) Basophils (%) (Auto) 1 % (0-3) Neutrophils # (Auto) 10.5 x10^3uL (1.8-7.7) Lymphocytes # (Auto) 0.6 x10^3/uL (1.0-4.8) Monocytes # (Auto) 0.8 x10^3/uL (0.0-1.1) Eosinophils # (Auto) 0.0 x10^3/uL (0.0-0.7) Basophils # (Auto) 0.1 x10^3/uL (0.0-0.2) Segmented Neutrophils % 96 % (35-66) Band Neutrophils % 1 % (0-9) Lymphocytes % 1 % (24-48) Monocytes % 2 % (0-10) Platelet Estimate Adequate (ADEQUATE) Sodium Level 136 mmol/L (136-145) Potassium Level 4.9 mmol/L (3.5-5.1) Chloride Level 100 mmol/L (98-107) Carbon Dioxide Level 31 mmol/L (21-32) Anion Gap 5 (6-14) Blood Urea Nitrogen 13 mg/dL (7-20) Creatinine 0.8 mg/dL (0.6-1.0) Estimated GFR (Cockcroft-Gault) 70.5 Glucose Level 212 mg/dL (70-99) Calcium Level 9.7 mg/dL (8.5-10.1) Medications Current Medications Midazolam HCl (Versed) 2 mg PRN 1X PRN IV PRIOR TO PROCEDURE; Start 06/26/17 at 13:00; Stop 06/27/17 at 12:59; Status DC Fentanyl Citrate (Fentanyl 2ml Vial) 25 mcg PRN Q5MIN PRN IV X 2 DOSES FOR PAIN Last administered on 06/26/17 19:33; Start 06/26/17 at 13:00; Stop at 12:59; Status DC Fentanyl Citrate (Fentanyl 2ml Vial) 50 mcg PRN Q5MIN PRN IV X 2 DOSES FOR PAIN ; Start 06/26/17 at 13:00; Stop 06/27/17 at 12:59; Status DC Ringer's Solution 1,000 ml @ 125 mls/hr Q8H IV Last administered on 12:55; Start 06/26/17 at 12:53; Stop 06/27/17 at 00:52; Status DC Lidocaine HCl (Xylocaine-Mpf 1% Vial) 2 ml 1X PRN PRN ID IV START; Start 06/26 at 13:00; Stop 06/27/17 at 12:59; Status DC Albuterol/ Ipratropium (Duoneb) 3 ml 1X ONCE NEB Last administered on 16:27; Start 06/26/17 at 16:15; Stop 06/26/17 at 16:16; Status DC Bupivacaine HCl (Marcaine 0.5%) 50 ml STK-MED ONCE INJ Last administered on 15:00; Start 06/26/17 at 15:00; Stop 06/26/17 at 16:33; Status DC Lidocaine HCl 20 ml STK-MED ONCE INJ Last administered on 06/26/17 15:00; Start 06/26/17 at 15:00; Stop 06/26/17 at 16:33; Status DC Hydralazine HCl (Apresoline Inj) 10 mg PRN Q4HRS PRN IVP ELEVATED BP, SEE COMMENTS Last administered on 06/26/17 17:10; Start 06/26/17 at 16:30; Stop 06/28/17 at 11:04; Status DC Albuterol/ Ipratropium (Duoneb) 3 ml 1X ONCE NEB Last administered on 16:35; Start 06/26/17 at 16:45; Stop 06/26/17 at 16:46; Status DC Albuterol/ Ipratropium (Duoneb) 3 ml 1X ONCE NEB ; Start 06/26/17 at 16:45; Stop 06/26/17 at 16:46; Status DC Ondansetron HCl (Zofran) 4 mg PRN Q6HRS PRN IV NAUSEA/VOMITING, 1st choice; Start 06/26/17 at 18:45; Stop 06/28/17 at 11:04; Status DC Prochlorperazine Edisylate (Compazine) 10 mg PRN Q6HRS PRN IV NAUSEA/VOMITING ( 2nd Choice); Start 06/26/17 at 18:45; Stop 06/28/17 at 11:04; Status DC Prochlorperazine (Compazine) 25 mg PRN Q12HR PRN [place] NAUSEA/VOMITING; Start at 18:45; Stop 06/28/17 at 11:04; Status DC Al Hydroxide/Mg Hydroxide (Mylanta Plus Xs) 30 ml PRN Q3HRS PRN PO HEARTBURN / GAS; Start 06/26/17 at 18:45; Stop 06/28/17 at 11:04; Status DC Calcium Carbonate/ Glycine (Tums) 500 mg PRN Q3HRS PRN PO UPSET STOMACH; Start 06/26/17 at 18:45; Stop 06/28/17 at 11:04; Status DC Ketorolac Tromethamine (Toradol) 15 mg PRN Q6HRS PRN IV PAIN; Start 06/26/17 at 18:45; Stop 06/28/17 at 11:04; Status DC Acetaminophen (Tylenol) 650 mg PRN Q6HRS PRN PO Headaches, Temp > 101.5F; Start 06/26/17 at 18:45; Stop 06/28/17 at 11:04; Status DC Ibuprofen (Motrin) 400 mg PRN Q6HRS PRN PO MILD PAIN; Start 06/26/17 at 18:45 ; Stop 06/28/17 at 11:04; Status DC Docusate Sodium (Colace) 100 mg BID PO Last administered on 06/28/17 08:22; Start 06/26/17 at 21:00; Stop 06/28/17 at 11:04; Status DC Magnesium Hydroxide (Milk Of Magnesia) 2,400 mg PRN Q12HR PRN PO CONSTIPATION; Start 06/26/17 at 18:45; Stop 06/28/17 at 11:04; Status DC Bisacodyl (Dulcolax Supp) 10 mg PRN DAILY PRN [place] CONSTIPATION; Start 06/26/17 at 18:45; Stop 06/28/17 at 11:04; Status DC Enoxaparin Sodium (Lovenox 40mg Syringe) 40 mg Q24H SQ Last administered on 20:36; Start 06/26/17 at 19:00; Stop 06/28/17 at 11:04; Status DC Albuterol/ Ipratropium (Duoneb) 3 ml RTQID NEB Last administered on 06/28/17 07:52; Start 06/26/17 at 20:00; Stop 06/28/17 at 11:04; Status DC Aspirin (Gloria Aspirin) 325 mg DAILY PO Last administered on 06/28/17 08:22; Start 06/27/17 at 09:00; Stop 06/28/17 at 11:04; Status DC EZETIMIBE (Zetia) 10 mg DAILY PO Last administered on 06/28/17 08:22; Start 06/27/17 at 09:00; Stop 06/28/17 at 11:04; Status DC Furosemide (Lasix) 40 mg DAILY PO Last administered on 06/28/17 08:22; Start 06/27/17 at 09:00; Stop 06/28/17 at 11:04; Status DC Acetaminophen/ Hydrocodone Bitart (Lortab 5/325) 1 tab PRN Q6HRS PRN PO PAIN Last administered on 06/27/17 20:43; Start 06/26/17 at 18:45; Stop 06/28/17 at 11:04; Status DC Lisinopril (Prinivil) 10 mg DAILY PO ; Start 06/27/17 at 09:00; Stop 06/28/17 at 11:04; Status DC Metformin HCl (Glucophage) 500 mg BIDWMEALS PO Last administered on 06/27/17 09:41; Start 06/26/17 at 19:00; Stop 06/28/17 at 11:04; Status DC Metoprolol Tartrate (Lopressor) 25 mg BID PO Last administered on 06/28/17 08 :24; Start 06/26/17 at 21:00; Stop 06/28/17 at 11:04; Status DC Promethazine HCl/ Codeine (Phenergan With Codeine) 10 ml QHS PO Last administered on 06/27/17 20:38; Start 06/26/17 at 21:00; Stop 06/28/17 at 11 :04; Status DC Simvastatin (Zocor) 40 mg HS PO Last administered on 06/27/17 20:39; Start 06/26/17 at 21:00; Stop 06/28/17 at 11:04; Status DC Calcium/Vitamin D (Oscal D 500mg/ 200uts) 1 tab DAILY08 PO Last administered on 06/28/17 08:22; Start 06/27/17 at 08:00; Stop 06/28/17 at 11:04; Status DC Glimepiride (Amaryl) 4 mg DAILY PO Last administered on 06/28/17 08:22; Start 06/27/17 at 09:00; Stop 06/28/17 at 11:04; Status DC Non-Formulary Medication 150 mg MONTHLY PO ; Start 06/26/17 at 18:45; Stop at 18:52; Status DC Potassium Chloride (Klor-Con) 20 meq DAILYWBKFT PO Last administered on t 08:22; Start 06/27/17 at 08:00; Stop 06/28/17 at 11:04; Status DC Vancomycin HCl 1 gm STK-MED ONCE .ROUTE ; Start 06/26/17 at 13:00; Stop at 08:50; Status DC Gadobutrol (Gadavist) 7.5 mmol 1X ONCE IV ; Start 06/27/17 at 16:15; Stop at 16:16; Status DC Active Scripts Active Reported Promethazine-Codeine Syrup (Promethazine Hcl/Codeine) 118 Ml Syrup 10 Ml PO QHS Hydrocodone-Apap 5-325 (Hydrocodone Bit/Acetaminophen) 1 Each Tablet 1 Tab PO PRN Q6HRS PRN Centrum Adults Tablet (Multivitamin/Iron/Folic Acid) 1 Each Tablet 1 Each PO Fish Oil 1,200 Mg Softgel ([place]-3 Fatty Acids/Fish Oil) 1 Each Capsule 1 Each PO Lisinopril 10 Mg Tablet 1 Tab PO DAILY Aspirin 325 Mg Tablet 325 Mg PO DAILY Caltrate 600 + D Tablet (Calcium Carbonate/Vitamin D3) 1 Each Tablet 1 Each PO DAILY Boniva (Ibandronate Sodium) 150 Mg Tablet 150 Mg PO MONTHLY Zetia (Ezetimibe) 10 Mg Tablet 10 Mg PO DAILY Glimepiride 4 Mg Tablet 4 Mg PO DAILY Potassium Chloride 20 Meq Tablet.er 20 Meq PO DAILY Furosemide 40 Mg Tablet 40 Mg PO DAILY Simvastatin 40 Mg Tablet 40 Mg PO HS Metoprolol Tartrate 25 Mg Tablet 25 Mg PO BID Metformin Hcl 500 Mg Tablet 500 Mg PO BIDWMEALS Vitals/I & O Vital Sign - Last 24 Hours 06/27/17 06/27/17 06/27/17 06/27/17 11:33 12:00 12:27 14:03 Temp 98.1 98.1 Pulse 76 Resp 19 B/P (MAP) 85/46 (59) 96/41 (59) Pulse Ox 91 94 O2 Delivery Nasal Cannula Nasal Cannula Nasal Cannula O2 Flow Rate 5.0 6.0 5.0 06/27/17 06/27/17 06/27/17 06/27/17 14:50 15:12 19:19 20:00 Temp 98.3 98.2 98.3 98.2 Pulse 80 89 Resp 20 20 B/P (MAP) 92/43 (59) 88/42 (57) Pulse Ox 95 94 94 93 O2 Delivery Nasal Cannula Nasal Cannula Nasal Cannula Nasal Cannula O2 Flow Rate 6.0 6.0 6.0 5.0 06/27/17 06/27/17 06/27/17 06/27/17 20:00 20:43 20:43 22:00 Pulse 93 B/P (MAP) 94/55 Pulse Ox 93 96 O2 Delivery Nasal Cannula Nasal Cannula Nasal Cannula O2 Flow Rate 6.0 5.0 5.0 06/27/17 06/28/17 06/28/17 06/28/17 23:10 03:28 07:00 07:53 Temp 98.8 98.8 97.9 98.8 98.8 97.9 Pulse 91 82 87 Resp 20 22 20 B/P (MAP) 83/41 (55) 85/44 (58) 96/41 (59) Pulse Ox 94 96 94 95 O2 Delivery Nasal Cannula Nasal Cannula Nasal Cannula Nasal Cannula O2 Flow Rate 6.0 6.0 6.0 5.0 06/28/17 06/28/17 06/28/17 08:00 08:24 08:27 Pulse 87 87 B/P (MAP) 96/41 96/41 O2 Delivery Nasal Cannula O2 Flow Rate 5.0 Intake and Output 06/27/17 06/27/17 06/28/17 15:00 23:00 07:00 Intake Total 300 ml 480 ml 500 ml Balance 300 ml 480 ml 500 ml CASTLE,NIAL K III DO Jun 28, 2017 11:31
--- NOTE | 2017-07-02 15:17 | PATHOLOGY ---
PATHOLOGY REPORT * * * * * * * * FINAL DIAGNOSIS: A. Right lower lobe bronchial biopsy: - POORLY DIFFERENTIATED ADENOCARCINOMA (Please see comment) B. Right paratracheal lymph node biopsy: - Reactive changes with sinus histiocytosis and focal anthracosis-negative for tumor. C. Right level 4 lymph node biopsy: - Reactive changes with sinus histiocytosis and focal anthracosis-negative for tumor. COMMENT: Sections of the right lower lobe bronchial biopsy reveal a segment of bronchial mucosa. There are individual malignant cells and small clusters of malignant cells within the stroma of the bronchial biopsy underlining the mucosal epithelium. The malignant cells have a polygonal shape, and have ample amounts of eosinophilic cytoplasm. The malignant cells possess enlarged, moderately pleomorphic hyperchromatic nuclei. There is no evidence of glandular differentiation. A controlled panel of immunoperoxidase stains is obtained and yields the following results: The tumor cells are strongly positive for CK7, TTf-1, and cytokeratin AE1/AE3. The tumor cells are negative for p63, p40, and CK5/6. Case has also been reviewed by Dr. Jacinto who agrees. (JPM:SKM:mgmery; 07/02/2017) Special Stains Performed: Immunoperoxidase stains (A1) REPORT ELECTRONICALLY SIGNED BY: Anita Smith M.D. DATE/TIME: 07/02/2017 15:17 * * * * * * * * GROSS PATHOLOGY: A. The specimen is received fresh for intraoperative consultation and is designated "right lower lobe bronchus." This consists of three minute segments of yellow-crowe tissue measuring 0.1-0.2 cm in greatest dimension. These are submitted for frozen section as FSA1. The tissue remaining from frozen section is submitted for permanent sections as A1. (JPM:mgmery; 06/26/2017) B. The specimen is received fresh for intraoperative consultation and is designated, "right paratracheal lymph node." This consists of a nodular segment of red soft tissue measuring up to 0.6 cm in greatest dimension. This is submitted without sectioning for frozen section as FSB1. The tissue remaining from frozen section is submitted for permanent sections as B1. C. The specimen is received in formalin and requested for frozen section and is designated, "right level 4." This consists of two ovoid segments of red soft tissue measuring 0.4 and 0.6 cm in greatest dimension showing focal brown-black cautery change. These are submitted for frozen section as FSC1. The tissue remaining from frozen section is submitted for permanent sections as C1. (JPM:mml; 06/26/2017) FROZEN SECTION DIAGNOSIS: (Sabino Jacinto M.D.) A. Right lower lobe bronchus biopsies: - POORLY DIFFERENTIATED NON-SMALL CELL CARCINOMA UNDERMINING MUCOSAL EPITHELIUM. The results are reported to Dr. Menendez in the operating room. (JPM:mgr; 06/26/2017) B. Right paratracheal lymph node biopsy: - Negative for tumor. The results are reported to Dr. Menendez in the operating room. C. Right level 4 lymph node biopsy: - Negative for tumor. The results are reported to Dr. Menendez in the pathology area. (JPM:mml; 06/26/2017) Testing performed [place] [address] INITIAL CPT CODE(S): A; 48670, 82904, 77185, 46967, 24848, 88392, 85559, 31032 B; 80919, 86761 C; 23043, 94404 Professional services performed [place] [address] Technical services performed by [facility] at [address] [place] [address]. SPECIMEN(S) RECEIVED: A.Right lower lobe bronchus B.Right paratracheal lymph node C.Right level 4 CLINICAL HISTORY: Extensive mediastinal adenopathy, right lung mass PATIENT: KENDY WALLACE /AGE: 8 1945 (Age: 72) PATIENT #: [id number] ALT CASE #: SPECIMEN COLLECTION DATE: 06/26/2017 SPECIMEN RECEIVED DATE: 06/26/2017 [facility] [place] [address] - PHONE: [phone] * * * END OF REPORT * * *
[2017-07-10] MEDS ORDERED: GLIM1TAB2 PO (13:43)
--- NOTE | 2017-07-20 12:02 | DS ---
DATE OF DISCHARGE: 06/28/2017 ADMISSION DIAGNOSES: Lung mass and respiratory failure. DISCHARGE DIAGNOSIS: Lung cancer. HOSPITAL COURSE: The patient is a pleasant 72-year-old female who originally had undergone an outpatient procedure to get a biopsy of some tissue of a lung mass. After the procedure, she had respiratory failure. She will be admitted. She eventually was intubated and in the ICU. We did get her extubated. The masses confirming lung cancer. I discussed the case with Dr. Hunter. He does want to do chemotherapy, but he wants to start that in a few weeks. Basically, we let her go home with close outpatient followup. DISPOSITION: Home. ACTIVITY: As tolerated. DIET: Low sodium. MEDICATIONS: Please see the MRAD. PROGNOSIS: Guarded at best. TOTAL TIME ON DISCHARGE: 33 minutes. FAM [facility] DO DR: ANISH/marifer JOB#: [id number] / [id number]
== END 2017-06-28 10:50 | disposition home or self-care (01) | DRG 166 ==
LOC: SURG 12:20 → 1 WEST ICU 17:49 → 2 SOUTH 06-27 12:12
PROVIDERS: ADMIT Internal Medicine; ATTEND Internal Medicine
PROC: 07B74ZX Excision of Thorax Lymphatic, Percutaneous Endoscopic Approach, Diagnostic (ICD-10-PCS; 2017-06-26)
PROC: 0BC68ZZ Extirpation of Matter from Right Lower Lobe Bronchus, Via Natural or Artificial Opening Endoscopic (ICD-10-PCS; 2017-06-26)
PROC: 0BC38ZZ Extirpation of Matter from Right Main Bronchus, Via Natural or Artificial Opening Endoscopic (ICD-10-PCS; 2017-06-26)
PROC: 0BBF8ZX Excision of Right Lower Lung Lobe, Via Natural or Artificial Opening Endoscopic, Diagnostic (ICD-10-PCS; 2017-06-26 14:00)
PROC: 5A09357 Assistance with Respiratory Ventilation, Less than 24 Consecutive Hours, Continuous Positive Airway Pressure (ICD-10-PCS; principal; 2017-06-28)
DX: C34.91 Malignant neoplasm of unspecified part of right bronchus or lung (principal); J18.9 Pneumonia, unspecified organism; J96.20 Acute and chronic respiratory failure, unspecified whether with hypoxia or hypercapnia; T17.590A Other foreign object in bronchus causing asphyxiation, initial encounter; Z99.81 Dependence on supplemental oxygen; C34.90 Malignant neoplasm of unspecified part of unspecified bronchus or lung; E11.9 Type 2 diabetes mellitus without complications; J44.1 Chronic obstructive pulmonary disease with (acute) exacerbation; J44.0 Chronic obstructive pulmonary disease with (acute) lower respiratory infection; E78.5 Hyperlipidemia, unspecified; G89.29 Other chronic pain; J30.9 Allergic rhinitis, unspecified; I10 Essential (primary) hypertension; J20.9 Acute bronchitis, unspecified; Z83.3 Family history of diabetes mellitus; Z86.718 Personal history of other venous thrombosis and embolism; Z87.891 Personal history of nicotine dependence; Z88.0 Allergy status to penicillin; Z95.2 Presence of prosthetic heart valve; Z88.8 Allergy status to other drugs, medicaments and biological substances
CPT/HCPCS: 31622; 36415; 70553; 71010; 80048; 82962; 85007; 85025; 85610; 86850; 86900; 86901; 87641; 88305; 88331; 88341; 88342; 93005; 94250; 94640; 94660; C1769; J1650; J2704; J2710; J3010; J3370; J3490; J7120; J7620; J2001

== ENCOUNTER → 2017-09-17 | Outpatient (CLI) | payer MEDICARE, BC | END | disposition home or self-care (01) | LOC: PMGWOUND 08:26 | DX: E11.622 Type 2 diabetes mellitus with other skin ulcer (principal); L98.491 Non-pressure chronic ulcer of skin of other sites limited to breakdown of skin; L89.153 Pressure ulcer of sacral region, stage 3; I10 Essential (primary) hypertension; E11.42 Type 2 diabetes mellitus with diabetic polyneuropathy; E78.5 Hyperlipidemia, unspecified; E11.319 Type 2 diabetes mellitus with unspecified diabetic retinopathy without macular edema; K21.9 Gastro-esophageal reflux disease without esophagitis; M81.0 Age-related osteoporosis without current pathological fracture; J44.9 Chronic obstructive pulmonary disease, unspecified; Z87.891 Personal history of nicotine dependence; Z72.89 Other problems related to lifestyle; Z86.718 Personal history of other venous thrombosis and embolism; Z85.118 Personal history of other malignant neoplasm of bronchus and lung | CPT/HCPCS: 99203 ==

== ENCOUNTER → 2017-09-19 | Outpatient (CLI) | payer MEDICARE, BC | END | disposition home or self-care (01) | LOC: US 08:13 | DX: I82.411 Acute embolism and thrombosis of right femoral vein (principal) | CPT/HCPCS: 93971 ==

== ENCOUNTER 2017-09-24 05:08 | Inpatient (IN) | payer MEDICARE, BC ==
[2017-09-24 05:30] LABS: ADD MAN DIFF? NO
[2017-09-24] MEDS: IPRATRPIUM/ALBUTEROL 0.5/2.5MG 3 ML NEBU. NEB (05:30)
[2017-09-24 05:44] LABS: ANION GAP 5 (6-14); BLOOD UREA NITROGEN 8 mg/dL (7-20); CALCIUM 8.9 mg/dL (8.5-10.1); CARBON DIOXIDE 34 mmol/L (21-32); CHLORIDE 101 mmol/L (98-107); CREATININE 0.8 mg/dL (0.6-1.0); GFR 70.5; GLUCOSE 182 mg/dL (70-99); POTASSIUM 3.7 mmol/L (3.5-5.1); SODIUM 140 mmol/L (136-145)
[2017-09-24 05:56] LABS: TROPONINI 0.154 ng/mL (0.000-0.055)
[2017-09-24] MEDS: methylPREDNISolone SOD SUCC PF 125 MG/2 ML VIAL. IV (05:58)
[2017-09-24] MEDS: IV NORMAL SALINE 1000ML BAG 1,000 ML IV (05:58)
[2017-09-24] MEDS ORDERED: CONTRAST GIVEN MC (07:00)
[2017-09-24] MEDS: IOHEXOL 300 MG/ML 100ML VIAL. IV (07:15)
[2017-09-24 07:27] LABS: PARTIAL THROMBOPLASTIN TIME 31 SEC (24-38); PROTHROMBIN TIME PATIENT 12.2 SEC (11.7-14.0)
[2017-09-24 07:34] LABS: CKMB MASS 1.1 ng/mL (0.0-3.6); CREATINE KINASE 45 U/L (26-192)
[2017-09-24 07:56] LABS: BASO # 0.1 x10^3/uL (0.0-0.2); BASO % 1 % (0-3); EOS # 0.1 x10^3/uL (0.0-0.7); EOS % 1 % (0-3); HEMOGLOBIN 9.6 g/dL (12.0-15.5); LYMPH # 0.6 x10^3/uL (1.0-4.8); LYMPH % 8 % (24-48); MEAN CORPUSCULAR HEMOGLOBIN 33 pg (25-35); MEAN CORPUSCULAR HGB CONC 33 g/dL (31-37); MEAN CORPUSCULAR VOLUME 99 fL (79-100); MONO # 0.7 x10^3/uL (0.0-1.1); MONO % 9 % (0-9); NEUT # 5.9 x10^3uL (1.8-7.7); NEUT % 81 % (31-73); PLATELET COUNT 256 x10^3/uL (140-400); RED BLOOD COUNT 2.92 x10^6/uL (3.50-5.40); RED CELL DISTRIBUTION WIDTH 22.4 % (11.5-14.5); WHITE BLOOD COUNT 7.3 x10^3/uL (4.0-11.0)
[2017-09-24] MEDS ORDERED: ONDANSETRON PF 4 MG/2 ML VIAL. IV ×2 (08:00→15:15)
[2017-09-24] MEDS ORDERED: levOFLOXacin PER PHARMACY. MC (08:45)
[2017-09-24 09:56] LABS: ALBUMIN 2.9 g/dL (3.4-5.0); ALK PHOS 80 U/L (46-116); ALT (SGPT) 16 U/L (14-59); AST (SGOT) 21 U/L (15-37); DIRECT BILIRUBIN < 0.1 mg/dL (0.0-0.2); TOTAL BILIRUBIN 0.2 mg/dL (0.2-1.0); TOTAL PROTEIN 6.4 g/dL (6.4-8.2)
[2017-09-24 10:02] LABS: PLT ESTIMATE ADEQUATE (ADEQUATE)
[2017-09-24 10:03] LABS: ANISOCYTOSIS PRESENT; MICROCYTOSIS PRESENT; OVALOCYTES PRESENT; POIKILOCYTOSIS PRESENT; POLYCHROMASIA PRESENT; ROULEAUX PRESENT
[2017-09-24 10:04] LABS: NT-PRO BNP 2221 pg/mL (0-124)
[2017-09-24 10:05] LABS: THYROID STIM HORMONE (TSH) 2.787 uIU/mL (0.358-3.74)
[2017-09-24 10:06] LABS: POC GLUCOSE 142 mg/dL (70-99)
[2017-09-24 14:33] LABS: TROPONINI 0.106 ng/mL (0.000-0.055)
[2017-09-24] MEDS ORDERED: ACETAMINOPHEN 325 MG TABLET. PO (15:15)
[2017-09-24] MEDS ORDERED: hydrALAZINE 20 MG/ML VIAL. IVP (15:15)
[2017-09-24] MEDS ORDERED: NON FORMULARY ITEM (Ibandronate Sodium (Boniva) 150 MG) PO (15:15)
[2017-09-24] MEDS ORDERED: DOCUSATE SODIUM 100 MG CAPSULE. PO (15:15)
[2017-09-24] MEDS: ASPIRIN 325 MG TABLET PO ×2 (16:00→17:55)
[2017-09-24 16:29] LABS: POC GLUCOSE 273 mg/dL (70-99)
[2017-09-24] MEDS: EZETIMIBE 10 MG TABLET. PO (17:54)
[2017-09-24] MEDS: FUROSEMIDE 40 MG TABLET. PO (17:55)
[2017-09-24] MEDS: BENZONATATE 100 MG CAPSULE. PO (19:42)
[2017-09-24] MEDS: PROMETH/CODEINE 6.25/10MG 5 ML SYRUP. PO (20:21)
[2017-09-24] MEDS: SIMVASTATIN 40 MG TABLET. PO (20:21)
[2017-09-24] MEDS: METOPROLOL TART IMMED RELEASE 25 MG TABLET. PO (20:22)
[2017-09-24 20:43] LABS: POC GLUCOSE 237 mg/dL (70-99)
[2017-09-24] MEDS: HYDROcodone/APAP 10/325 1 TAB TABLET PO (22:13)
[2017-09-24] MEDS: ALBUTEROL SULFATE 2.5 MG/3 ML NEBU. NEB (22:28)
[2017-09-25 04:50] LABS: BASO % 0 % (0-3); EOS % 0 % (0-3); HEMATOCRIT 24.9 % (36.0-47.0); HEMOGLOBIN 8.4 g/dL (12.0-15.5); LYMPH # 0.3 x10^3/uL (1.0-4.8); LYMPH % 5 % (24-48); MEAN CORPUSCULAR HEMOGLOBIN 33 pg (25-35); MEAN CORPUSCULAR HGB CONC 34 g/dL (31-37); MEAN CORPUSCULAR VOLUME 98 fL (79-100); MONO # 0.5 x10^3/uL (0.0-1.1); MONO % 9 % (0-9); NEUT # 5.2 x10^3uL (1.8-7.7); NEUT % 87 % (31-73); PLATELET COUNT 217 x10^3/uL (140-400); RED BLOOD COUNT 2.54 x10^6/uL (3.50-5.40); RED CELL DISTRIBUTION WIDTH 22.4 % (11.5-14.5)
[2017-09-25 05:11] LABS: ANION GAP 2 (6-14); BLOOD UREA NITROGEN 11 mg/dL (7-20); CALCIUM 8.7 mg/dL (8.5-10.1); CARBON DIOXIDE 35 mmol/L (21-32); CHLORIDE 104 mmol/L (98-107); CREATININE 0.6 mg/dL (0.6-1.0); GFR 98.3; GLUCOSE 151 mg/dL (70-99); POTASSIUM 3.5 mmol/L (3.5-5.1); SODIUM 141 mmol/L (136-145)
[2017-09-25 05:35] LABS: ADD MAN DIFF? YES
[2017-09-25 08:16] LABS: POC GLUCOSE 125 mg/dL (70-99)
[2017-09-25] MEDS: POTASSIUM CHLORIDE 10 MEQ TABLET.ER. PO (08:41)
[2017-09-25] MEDS: FUROSEMIDE 40 MG/4 ML VIAL. IVP ×2 (08:41→18:40)
[2017-09-25] MEDS: GLIMEPIRIDE 2 MG TABLET. PO (08:42)
[2017-09-25] MEDS: MULTIVITAMIN with MINERAL TABLET. PO (08:43)
[2017-09-25] MEDS: METOPROLOL TART IMMED RELEASE 25 MG TABLET. PO ×2 (08:43→21:11)
[2017-09-25] MEDS ORDERED: LIDOCAINE WITH 8.4% SOD BICARB 3 ML DISP.SYRIN. (10:49)
[2017-09-25] MEDS: LIDOCAINE WITH 8.4% SOD BICARB 3 ML DISP.SYRIN. IJ (11:13)
[2017-09-25] MEDS: PROMETH/CODEINE 6.25/10MG 5 ML SYRUP. PO ×2 (12:00→21:11)
[2017-09-25 12:03] LABS: POC GLUCOSE 100 mg/dL (70-99)
[2017-09-25] MEDS: EZETIMIBE 10 MG TABLET. PO (12:06)
[2017-09-25] MEDS: ASPIRIN 325 MG TABLET PO (12:06)
[2017-09-25 13:41] LABS: % BANDS 12 % (0-9); % LYMPHS 3 % (24-48); % MONOS 9 % (0-10); % SEGS 76 % (35-66)
[2017-09-25 13:47] LABS: ANISOCYTOSIS MOD; PLT ESTIMATE ADEQUATE (ADEQUATE); POLYCHROMASIA SLIGHT; TOXIC GRANULATION SLIGHT
[2017-09-25] MEDS: ANTI-COAG MONITOR BY PHARMACY. MC (15:35)
[2017-09-25] MEDS: ALBUMIN HUMAN 25% 100 ML IV (18:41)
[2017-09-25 21:03] LABS: POC GLUCOSE 127 mg/dL (70-99)
[2017-09-25] MEDS: SIMVASTATIN 40 MG TABLET. PO (21:11)
[2017-09-25] MEDS: HYDROcodone/APAP 10/325 1 TAB TABLET PO (21:20)
[2017-09-26] MEDS: HYDROcodone/APAP 10/325 1 TAB TABLET PO ×2 (03:18→21:34)
[2017-09-26] MEDS: ALBUMIN HUMAN 25% 100 ML IV (06:44)
[2017-09-26 06:52] LABS: POC GLUCOSE 97 mg/dL (70-99)
[2017-09-26] MEDS: POTASSIUM CHLORIDE 10 MEQ TABLET.ER. PO (08:35)
[2017-09-26] MEDS: EZETIMIBE 10 MG TABLET. PO (08:35)
[2017-09-26] MEDS: GLIMEPIRIDE 2 MG TABLET. PO (08:35)
[2017-09-26] MEDS: MULTIVITAMIN with MINERAL TABLET. PO (08:35)
[2017-09-26] MEDS: FUROSEMIDE 40 MG/4 ML VIAL. IVP (08:41)
[2017-09-26] MEDS: ASPIRIN 325 MG TABLET PO (08:41)
[2017-09-26] MEDS: ANTI-COAG MONITOR BY PHARMACY. MC (08:44)
[2017-09-26] MEDS: METOPROLOL TART IMMED RELEASE 25 MG TABLET. PO ×2 (09:00→21:33)
[2017-09-26] MEDS ORDERED: LACTOBACILLUS RHAMNOSUS GG 1 CAPSULE. PO (09:00)
[2017-09-26 10:22] LABS: BODY FLUID LDH 96 IU/L (.)
[2017-09-26 11:52] LABS: POC GLUCOSE 107 mg/dL (70-99)
[2017-09-26 15:36] LABS: ADD MAN DIFF? NO
[2017-09-26 15:40] LABS: BASO % 0 % (0-3); EOS # 0.1 x10^3/uL (0.0-0.7); EOS % 1 % (0-3); HEMATOCRIT 28.2 % (36.0-47.0); HEMOGLOBIN 9.2 g/dL (12.0-15.5); LYMPH # 0.4 x10^3/uL (1.0-4.8); LYMPH % 5 % (24-48); MEAN CORPUSCULAR HEMOGLOBIN 33 pg (25-35); MEAN CORPUSCULAR HGB CONC 33 g/dL (31-37); MEAN CORPUSCULAR VOLUME 99 fL (79-100); MONO # 0.7 x10^3/uL (0.0-1.1); MONO % 11 % (0-9); NEUT # 5.6 x10^3uL (1.8-7.7); NEUT % 83 % (31-73); PLATELET COUNT 219 x10^3/uL (140-400); RED BLOOD COUNT 2.85 x10^6/uL (3.50-5.40); RED CELL DISTRIBUTION WIDTH 22.9 % (11.5-14.5); WHITE BLOOD COUNT 6.7 x10^3/uL (4.0-11.0)
[2017-09-26 17:41] LABS: POC GLUCOSE 97 mg/dL (70-99)
[2017-09-26 21:15] LABS: POC GLUCOSE 115 mg/dL (70-99)
[2017-09-26] MEDS: PROMETH/CODEINE 6.25/10MG 5 ML SYRUP. PO (21:34)
[2017-09-26] MEDS: SIMVASTATIN 40 MG TABLET. PO (21:34)
[2017-09-27] MEDS: HYDROcodone/APAP 10/325 1 TAB TABLET PO (03:36)
[2017-09-27 05:16] LABS: ADD MAN DIFF? NO
[2017-09-27 05:25] LABS: BASO % 1 % (0-3); EOS # 0.1 x10^3/uL (0.0-0.7); EOS % 2 % (0-3); HEMATOCRIT 28.5 % (36.0-47.0); HEMOGLOBIN 9.5 g/dL (12.0-15.5); LYMPH # 0.3 x10^3/uL (1.0-4.8); LYMPH % 6 % (24-48); MEAN CORPUSCULAR HEMOGLOBIN 33 pg (25-35); MEAN CORPUSCULAR HGB CONC 33 g/dL (31-37); MEAN CORPUSCULAR VOLUME 100 fL (79-100); MONO # 0.6 x10^3/uL (0.0-1.1); MONO % 11 % (0-9); NEUT # 4.2 x10^3uL (1.8-7.7); NEUT % 80 % (31-73); PLATELET COUNT 225 x10^3/uL (140-400); RED BLOOD COUNT 2.86 x10^6/uL (3.50-5.40); WHITE BLOOD COUNT 5.2 x10^3/uL (4.0-11.0)
[2017-09-27 06:09] LABS: ALBUMIN/GLOBULIN RATIO 0.9 (1.0-1.7); ALK PHOS 57 U/L (46-116); ALT (SGPT) 15 U/L (14-59); ANION GAP 6 (6-14); AST (SGOT) 13 U/L (15-37); BLOOD UREA NITROGEN 16 mg/dL (7-20); BUN/CREATININE RATIO 20 (6-20); CALCIUM 9.8 mg/dL (8.5-10.1); CARBON DIOXIDE 33 mmol/L (21-32); CHLORIDE 103 mmol/L (98-107); CREATININE 0.8 mg/dL (0.6-1.0); GFR 70.5; GLUCOSE 97 mg/dL (70-99); POTASSIUM 3.2 mmol/L (3.5-5.1); SODIUM 142 mmol/L (136-145); TOTAL BILIRUBIN 0.3 mg/dL (0.2-1.0); TOTAL PROTEIN 6.4 g/dL (6.4-8.2)
[2017-09-27 08:13] LABS: POC GLUCOSE 96 mg/dL (70-99)
[2017-09-27] MEDS: ASPIRIN CHEWABLE 81 MG TABLET. PO (08:49)
[2017-09-27] MEDS: EZETIMIBE 10 MG TABLET. PO (08:49)
[2017-09-27] MEDS: POTASSIUM CHLORIDE 20 MEQ TABLET.ER. PO ×3 (08:50→16:03)
[2017-09-27] MEDS: MULTIVITAMIN with MINERAL TABLET. PO (08:50)
[2017-09-27] MEDS: APIXABAN 2.5 MG TABLET. PO ×2 (08:50→20:08)
[2017-09-27] MEDS: GLIMEPIRIDE 2 MG TABLET. PO (08:50)
[2017-09-27] MEDS: FUROSEMIDE 40 MG TABLET. PO (08:51)
[2017-09-27] MEDS: METOPROLOL TART IMMED RELEASE 25 MG TABLET. PO ×3 (08:58→20:09)
[2017-09-27 11:48] LABS: POC GLUCOSE 106 mg/dL (70-99)
[2017-09-27 17:10] LABS: POC GLUCOSE 84 mg/dL (70-99)
[2017-09-27] MEDS: SIMVASTATIN 40 MG TABLET. PO (20:08)
[2017-09-27] MEDS: PROMETH/CODEINE 6.25/10MG 5 ML SYRUP. PO (20:09)
== END 2017-09-27 20:25 | disposition home or self-care (01) | DRG 180 ==
LOC: ER 05:08 → 2 NORTH 07:30
PROC: 0W993ZZ Drainage of Right Pleural Cavity, Percutaneous Approach (ICD-10-PCS; principal; 2017-09-25)
DX: C34.31 Malignant neoplasm of lower lobe, right bronchus or lung (principal); I21.4 Non-ST elevation (NSTEMI) myocardial infarction; J96.01 Acute respiratory failure with hypoxia; J91.0 Malignant pleural effusion; G89.29 Other chronic pain; M19.90 Unspecified osteoarthritis, unspecified site; E78.5 Hyperlipidemia, unspecified; E11.9 Type 2 diabetes mellitus without complications; I10 Essential (primary) hypertension; I25.10 Atherosclerotic heart disease of native coronary artery without angina pectoris; M81.0 Age-related osteoporosis without current pathological fracture; E87.6 Hypokalemia; J44.9 Chronic obstructive pulmonary disease, unspecified; Z88.5 Allergy status to narcotic agent; Z88.0 Allergy status to penicillin; Z88.8 Allergy status to other drugs, medicaments and biological substances; Z88.1 Allergy status to other antibiotic agents; Z86.718 Personal history of other venous thrombosis and embolism; Z83.3 Family history of diabetes mellitus; Z85.118 Personal history of other malignant neoplasm of bronchus and lung; Z86.73 Personal history of transient ischemic attack (TIA), and cerebral infarction without residual deficits; Z92.21 Personal history of antineoplastic chemotherapy; Z92.3 Personal history of irradiation; Z95.1 Presence of aortocoronary bypass graft; Z87.891 Personal history of nicotine dependence; Z95.2 Presence of prosthetic heart valve
CPT/HCPCS: 32555; 36415; 71045; 71046; 71275; 80048; 80053; 80076; 82553; 82962; 83615; 83880; 84157; 84443; 84484; 85007; 85025; 85610; 85730; 87071; 87075; 87205; 88112; 88305; 88341; 88342; 93005; 94640; 94760; 96361; 96374; 99285; 99285-25; J1650; J1940; J1956; J2930; J7030; J7613; J7620; P9046

== ENCOUNTER → 2017-10-10 | Outpatient (CLI) | payer MEDICARE, BC | END | disposition home or self-care (01) | LOC: PMGWOUND 11:00 | DX: E11.622 Type 2 diabetes mellitus with other skin ulcer (principal); L98.491 Non-pressure chronic ulcer of skin of other sites limited to breakdown of skin; L89.153 Pressure ulcer of sacral region, stage 3; M81.0 Age-related osteoporosis without current pathological fracture; I25.10 Atherosclerotic heart disease of native coronary artery without angina pectoris; J44.9 Chronic obstructive pulmonary disease, unspecified; I10 Essential (primary) hypertension; E78.5 Hyperlipidemia, unspecified; I21.4 Non-ST elevation (NSTEMI) myocardial infarction; G89.29 Other chronic pain; M19.90 Unspecified osteoarthritis, unspecified site; E11.42 Type 2 diabetes mellitus with diabetic polyneuropathy; K21.9 Gastro-esophageal reflux disease without esophagitis; E11.319 Type 2 diabetes mellitus with unspecified diabetic retinopathy without macular edema; Z95.1 Presence of aortocoronary bypass graft; Z86.718 Personal history of other venous thrombosis and embolism; Z85.118 Personal history of other malignant neoplasm of bronchus and lung; Z86.73 Personal history of transient ischemic attack (TIA), and cerebral infarction without residual deficits; Z87.891 Personal history of nicotine dependence; Z72.89 Other problems related to lifestyle; Z95.2 Presence of prosthetic heart valve | CPT/HCPCS: 99213 ==

== ENCOUNTER → 2017-10-11 | Outpatient (CLI) | payer MEDICARE, BC | END | disposition home or self-care (01) | LOC: RAD 09:57 | DX: C34.91 Malignant neoplasm of unspecified part of right bronchus or lung (principal); J90 Pleural effusion, not elsewhere classified | CPT/HCPCS: 71046 ==

== ENCOUNTER → 2017-10-17 | Outpatient (CLI) | payer MEDICARE, BC | END | disposition home or self-care (01) | LOC: RAD 11:58 | DX: J90 Pleural effusion, not elsewhere classified (principal); R91.8 Other nonspecific abnormal finding of lung field; Z85.118 Personal history of other malignant neoplasm of bronchus and lung | CPT/HCPCS: 71046 ==

== ENCOUNTER 2017-10-18 07:04 | Outpatient (CLI) | payer MEDICARE, BC ==
[2017-10-18 07:50] LABS: BASO % 0 % (0-3); EOS # 0.1 x10^3/uL (0.0-0.7); EOS % 1 % (0-3); HEMATOCRIT 30.7 % (36.0-47.0); HEMOGLOBIN 9.9 g/dL (12.0-15.5); LYMPH # 0.4 x10^3/uL (1.0-4.8); LYMPH % 4 % (24-48); MEAN CORPUSCULAR HEMOGLOBIN 32 pg (25-35); MEAN CORPUSCULAR HGB CONC 32 g/dL (31-37); MEAN CORPUSCULAR VOLUME 98 fL (79-100); MONO # 0.8 x10^3/uL (0.0-1.1); MONO % 9 % (0-9); NEUT # 7.6 x10^3uL (1.8-7.7); NEUT % 85 % (31-73); PLATELET COUNT 262 x10^3/uL (140-400); RED BLOOD COUNT 3.12 x10^6/uL (3.50-5.40); RED CELL DISTRIBUTION WIDTH 18.5 % (11.5-14.5); WHITE BLOOD COUNT 8.9 x10^3/uL (4.0-11.0)
[2017-10-18 07:51] LABS: ADD MAN DIFF? YES
[2017-10-18 08:04] LABS: PROTHROMBIN TIME PATIENT 12.7 SEC (11.7-14.0)
[2017-10-18 08:27] LABS: % BANDS 7 % (0-9); % LYMPHS 2 % (24-48); % METAS 1 % (0-0); % MONOS 4 % (0-10); % SEGS 86 % (35-66)
[2017-10-18 08:28] LABS: ANISOCYTOSIS SLIGHT; PLT ESTIMATE ADEQUATE (ADEQUATE)
[2017-10-18] MEDS ORDERED: LIDOCAINE 2%/EPI 1:100,000 20 ML VIAL. (08:30)
[2017-10-18] MEDS ORDERED: VANCOMYCIN 1GM IVPB FOR OMNI 250 ML (08:48)
[2017-10-18] MEDS ORDERED: MIDAZOLAM HCL/PF 2 MG/2 ML VIAL. (08:51)
[2017-10-18] MEDS ORDERED: fentaNYL PF VIAL 100 MCG/2 ML VIAL (08:52)
[2017-10-18] MEDS: LIDOCAINE 2%/EPI 1:100,000 20 ML VIAL. IJ (09:30)
[2017-10-18] MEDS: fentaNYL PF VIAL 100 MCG/2 ML VIAL IV (09:31)
[2017-10-18] MEDS: MIDAZOLAM HCL/PF 2 MG/2 ML VIAL. IV (09:31)
[2017-10-18] MEDS: VANCOMYCIN 1GM IVPB FOR OMNI 250 ML IV (09:32)
== END 2017-10-18 11:15 | disposition home or self-care (01) ==
LOC: INTRAD 07:04
DX: Z45.2 Encounter for adjustment and management of vascular access device (principal); J90 Pleural effusion, not elsewhere classified; C34.90 Malignant neoplasm of unspecified part of unspecified bronchus or lung; Z98.890 Other specified postprocedural states; I10 Essential (primary) hypertension; E11.9 Type 2 diabetes mellitus without complications; M81.0 Age-related osteoporosis without current pathological fracture; M19.90 Unspecified osteoarthritis, unspecified site; F17.210 Nicotine dependence, cigarettes, uncomplicated; Z90.49 Acquired absence of other specified parts of digestive tract; Z79.899 Other long term (current) drug therapy; Z88.0 Allergy status to penicillin; Z88.8 Allergy status to other drugs, medicaments and biological substances
CPT/HCPCS: 32555; 36415; 36561; 71045; 76937; 77001; 85007; 85025; 85610; 99152; 99153; C1751; C1892; J1644; J2250; J3010; J3370; J3490